=== PATIENT | male | born 1970 | race African-American/Black ===

== ENCOUNTER → 2016-08-18 | Outpatient (CLI) | payer OTHER ==
--- NOTE | ~2016-08-18 | US77 ---
[facility] A Service of [facility] & [facility] RADIOLOGY TEXT RESULTS PATIENT: CESAR ONOFRE LOCATION: US : 66 UNIT #: [id number] AGE: [address]: Martin Cisneros MD SEX: M ORDER DR: [id number] [facility]. [place], [place] [address] [id number] O MR#: [id number] Acc #: [id number] NAME: CESAR ONOFRE : 1970 SEX: M STUDY DATE/TIME: 08/18/2016 12:45 UNIT: CGUS ROOM: STUDY DESCRIPTION: US Kidney Bilateral Complete Attending Physician: Martin Cisneros Sr., M.D. Referring Physician: Martin Cisneros Sr., M.D. Ordering Physician: Martin Cisneros Sr., M.D. Primary Care Physician: Martin Cisneros Sr., M.D. MEDICAL IMAGING REPORT This report is preliminary unless electronic signature is present EXAM Renal ultrasound INDICATION Chronic kidney disease stage II TECHNIQUE Lee scale and color Doppler sonographic images were obtained through the kidneys and bladder. FINDING Right kidney measures 5.9 x 11.2 x 5.3 cm. There is no evidence of hydronephrosis. Simple renal cyst is noted measuring about 7 x 7 x 9 mm. No solid renal masses are identified. Urinary bladder appears normal. Patient does have some dystrophic calcifications seen within the prostate gland, left kidney measures 11.4 x 6.4 x 4.7 cm, there is no evidence of hydronephrosis. There is also a simple left renal cyst measuring 1.4 x 1.4 x 1.5 cm. No solid renal masses are seen. IMPRESSION Bilateral renal cysts Dictated by... Marlen Macdonald M.D. THIS IS AN ELECTRONICALLY VERIFIED REPORT Marlen Macdonald M.D. at 08/19/2016 4:38 PM AFF/rnr TD: 08/18/2016 15:58 JOB #: [id number] MEDICAL IMAGING REPORT [facility] A Service of [facility] & [facility] RADIOLOGY TEXT RESULTS PATIENT: CESAR ONOFRE LOCATION: [facility] #: [id number] : [birth year] UNIT #: [id number] AGE: [address]: Martin Cisneros MD SEX: M ORDER DR: Page 1 of 1 COPY
== END | disposition home or self-care (01) ==
LOC: CGUS 12:20
DX: I12.9 Hypertensive chronic kidney disease with stage 1 through stage 4 chronic kidney disease, or unspecified chronic kidney disease (principal); N18.2 Chronic kidney disease, stage 2 (mild); N28.1 Cyst of kidney, acquired
CPT/HCPCS: 76770

== ENCOUNTER → 2016-08-19 | Outpatient (CLI) | payer OTHER ==
--- NOTE | ~2016-08-19 | US78 ---
[facility] A Service of [facility] RADIOLOGY TEXT RESULTS PATIENT: CESAR ONOFRE LOCATION: CNIV : 66 UNIT #: [id number] AGE: [address]: Martin Cisneros MD SEX: M ORDER DR: [id number] [facility] [address] [place], [place] [address] [id number] O MR#: [id number] Acc #: [id number] NAME: CESAR ONOFRE : 1970 SEX: M STUDY DATE/TIME: 08/19/2016 8:17 UNIT: CNIV ROOM: STUDY DESCRIPTION: US Kidney Duplex Complete Attending Physician: Martin Cisneros Sr., M.D. Referring Physician: Martin Cisneros Sr., M.D. Ordering Physician: Martin Cisneros Sr., M.D. Primary Care Physician: Martin Cisneros Sr., M.D. MEDICAL IMAGING REPORT This report is preliminary unless electronic signature is present EXAM Renal duplex Doppler INDICATION Refractory hypertension. Concern for renal artery stenosis. PROCEDURE Lee-scale, color Doppler and spectral imaging abdominal aorta, kidneys and renal arteries. COMPARISON Renal ultrasound from 07/29/2016. FINDINGS Refer to the separately dictated renal ultrasound for kidney findings. Peak systolic velocity abdominal aorta measures 136 cm/sec. Peak systolic velocity in the right renal artery measures up to 119 cm/sec in the proximal segment and in the left renal artery is 121 cm/sec in the proximal segment. Peak systolic velocities in the segmental and arcuate arteries are 34 and 22 cm/sec on the right and 36 and 23 cm/sec on the left. The renal artery to aortic ratio is 0.8 on the right and 0.9 on the left. IMPRESSION No evidence for renal artery stenosis. Dictated by... Dennys Jean Baptiste M.D. THIS IS AN ELECTRONICALLY VERIFIED REPORT Dennys Jean Baptiste M.D. at 08/20/2016 9:38 AM [facility] A Service [facility] RADIOLOGY TEXT RESULTS PATIENT: CESAR ONOFRE LOCATION: CNIV : 66 UNIT #: [id number] AGE: [address]: Martin Cisneros MD SEX: M ORDER DR: OTONIEL/terrell TD: 08/19/2016 10:54 JOB #: [id number] MEDICAL IMAGING REPORT Page 1 of 1 COPY
== END | disposition home or self-care (01) ==
LOC: CNIV 07:53
DX: I12.9 Hypertensive chronic kidney disease with stage 1 through stage 4 chronic kidney disease, or unspecified chronic kidney disease (principal); N18.2 Chronic kidney disease, stage 2 (mild)
CPT/HCPCS: 93975